=== PATIENT | male | born 1965 | race Caucasian/White ===

== ENCOUNTER 2016-09-14 20:05 | Emergency (ER) | payer BC, OTHER ==
[2016-09-14] MEDS ORDERED: Aspirin Low Dose CHEW TAB* 81 MG PO ONE (21:20)
[2016-09-14 21:44] LABS: Hematocrit 51 % (42-52); Hemoglobin 17.2 g/dl (14.0-18.0); Mean Corpuscular HGB Conc 34 g/dl (31-36); Mean Corpuscular Hemoglobin 30 pg (27-31); Mean Corpuscular Volume 88 fL (80-94); Mean Platelet Volume 8 um3 (7.4-10.4); Red Blood Count 5.79 10^6/ul (4.0-5.4); Red Cell Distribution Width 14 % (10.5-15); White Blood Count 7.7 10^3/ul (3.5-10.8)
[2016-09-14 21:59] LABS: Albumin 4.2 g/dL (3.2-5.2); BUN/Creatinine Ratio 16.5 (8-20); Calcium 9.2 mg/dL (8.6-10.3); EGFR African American 105.8 (>60); EGFR Non-African American 82.3 (>60); Globulin 2.6 g/dL (2-4); Potassium 3.7 mmol/L (3.5-5.0); Total Bilirubin 0.8 mg/dL (0.2-1.0); Total Protein 6.8 g/dL (6.4-8.9)
--- NOTE | 2016-09-14 22:14 | RAD ---
INDICATION: Chest pain. COMPARISON: There are no prior studies available for comparison. TECHNIQUE: A portable view of the chest was obtained. FINDINGS: Cardiac and mediastinal contours appear to be within normal limits. The lungs are clear. No pleural effusion is seen. IMPRESSION: NO EVIDENCE FOR ACUTE DISEASE.
--- NOTE | 2016-09-14 22:52 | ED ---
I, Oh,Aicha, scribed for Carmita Ramon MD on 09/14/16 at 2121 . HPI Chest Pain - HPI Summary HPI Summary: This 51 y/o male presents to ED for acute 2/10 chest tightness since 1900 PM this evening. Pt reports mild SOB, but denies diaphoresis. This chest pain is similar to what he usually have during his previous anxiety attacks, but pt decided to visit ED when he couldn't control the symptoms with alprazolam. PMHx does include known anxiety. He denies any Hx of DVT. No recent travel. FHx is negative for cardiac dz. 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 Plan of care involving cardiac workup and repeat Trop is discussed with pt. He is agreeable at this time. - History of Current Complaint Chief Complaint: EDChestPainROMI Time Seen by Provider: 09/14/16 20:47 Hx Obtained From: Patient Onset/Duration: Started Hours Ago, Atraumatic, Still Present Timing: Constant Pain Intensity: 2 Pain Scale Used: 0-10 Numeric Chest Pain Location: Diffuse Chest Pain Radiates: No Character: Tightness Aggravating Factor(s): Nothing Alleviating Factor(s): Nothing Associated Signs and Symptoms: Positive: Chest Pain, Shortness of Breath - mild. Negative: Fever, Diaphoresis - Allergy/Home Medications Allergies/Adverse Reactions: Allergies Allergy/AdvReac Type Severity Reaction Status Date / Time No Known Allergies Allergy Verified 09/14/16 20:37 PMH/Surg Hx/FS Hx/Imm Hx Infectious Disease History: Denies: Traveled Outside the [place] in Last 30 Days - Family History Known Family History: Negative: Cardiac Disease - Social History Occupation: Employed Full-time - production specialist at [employer] Alcohol Use: None Hx Substance Use: No Substance Use Type: Reports: None Hx Tobacco Use: No Smoking Status (MU): Never Smoked Tobacco Review of Systems Negative: Fever, Skin Diaphoresis Positive: Chest Pain - tightness Positive: Shortness Of Breath - mild Positive: Anxious All Other Systems Reviewed And Are Negative: Yes Physical Exam Triage Information Reviewed: Yes Vital Signs On Initial Exam: Initial Vitals Temp Pulse Resp BP Pulse Ox 98.1 F 95 16 112/80 99 09/14/16 20:11 09/14/16 20:11 09/14/16 20:11 09/14/16 20:11 09/14/16 20:11 Vital Signs Reviewed: Yes Appearance: Positive: Well-Appearing, No Pain Distress Skin: Positive: Warm, Skin Color Reflects Adequate Perfusion, Dry Head/Face: Positive: Normal Head/Face Inspection Eyes: Positive: EOMI, LEDY Neck: Positive: Supple, Nontender Respiratory/Lung Sounds: Positive: Clear to Auscultation, Breath Sounds Present Cardiovascular: Positive: RRR, Pulses are Symmetrical in both Upper and Lower Extremities. Negative: Murmur, Rub, Other - gallops Abdomen Description: Positive: Nontender, Soft Musculoskeletal: Positive: Strength/ROM Intact Neurological: Positive: Sensory/Motor Intact, Alert, Oriented to Person Place, Time, CN Intact II-III Psychiatric: Positive: Affect/Mood Appropriate AVPU Assessment: Alert Diagnostics - Vital Signs Vital Signs Temp Pulse Resp BP Pulse Ox 09/14/16 20:11 98.1 F 95 16 112/80 99 - Laboratory Lab Results: Lab Results 09/14/16 09/14/16 Range/Units 21:35 21:35 WBC 7.7 (3.5-10.8) 10^3/ul RBC 5.79 H (4.0-5.4) 10^6/ul Hgb 17.2 (14.0-18.0) g/dl Hct 51 (42-52) % MCV 88 (80-94) fL MCH 30 (27-31) pg MCHC 34 (31-36) g/dl RDW 14 (10.5-15) % Plt Count 200 (150-450) 10^3/ul MPV 8 (7.4-10.4) um3 Neut % (Auto) 49.7 (38-83) % Lymph % (Auto) 37.7 (25-47) % [place] % (Auto) 6.7 (1-9) % Eos % (Auto) 4.9 (0-6) % Baso % (Auto) 1.0 (0-2) % Absolute Neuts (auto) 3.8 (1.5-7.7) 10^3/ul Absolute Lymphs (auto) 2.9 (1.0-4.8) 10^3/ul Absolute Monos (auto) 0.5 (0-0.8) 10^3/ul Absolute Eos (auto) 0.4 (0-0.6) 10^3/ul Absolute Basos (auto) 0.1 (0-0.2) 10^3/ul Absolute Nucleated RBC 0.01 10^3/ul Nucleated RBC % 0.1 Sodium 136 (133-145) mmol/L Potassium 3.7 (3.5-5.0) mmol/L Chloride 103 (101-111) mmol/L Carbon Dioxide 27 (22-32) mmol/L Anion Gap 6 (2-11) mmol/L BUN 16 (6-24) mg/dL Creatinine 0.97 (0.67-1.17) mg/dL Est GFR ( Amer) 105.8 (>60) Est GFR (Non-Af Amer) 82.3 (>60) BUN/Creatinine Ratio 16.5 (8-20) Glucose 91 (70-100) mg/dL Calcium 9.2 (8.6-10.3) mg/dL Total Bilirubin 0.80 (0.2-1.0) mg/dL AST 22 (13-39) U/L ALT 24 (7-52) U/L Alkaline Phosphatase 39 (34-104) U/L Troponin I 0.00 (<0.04) ng/mL Total Protein 6.8 (6.4-8.9) g/dL Albumin 4.2 (3.2-5.2) g/dL Globulin 2.6 (2-4) g/dL Albumin/Globulin Ratio 1.6 (1-3) Result Diagrams: 09/14/16 21:35 09/14/16 21:35 Lab Statement: Any lab studies that have been ordered have been reviewed, and results considered in the medical decision making process. - Radiology CXR Xray Interpretation: No Acute Changes Radiology Interpretation Completed By: Radiologist - EKG 2017 Cardiac Rate: NL EKG Rhythm: Sinus Rhythm Chest Pain Course/Dx - Course Course Of Treatment: pt with no risk factors but with cp starting at 7pm has a hx of cp that is thought to be anxiety provoked that always goes away with benzos but today that didn't happen, he is awaiting a 2nd trop at 2pm and if it is negative will go home. Pt signed out to Dr. Contreras - Diagnoses Provider Diagnoses: Chest pain Discharge - Discharge Plan Condition: Stable Disposition: HOME Patient Education Materials: Chest Pain (ED) Forms: *Work Release The documentation as recorded by the scribe, Aicha Garg accurately reflects the service I personally performed and the decisions made by me, Carmita Ramon MD.
[2016-09-15 03:04] VITALS: BP 119/88
== END 2016-09-15 03:02 | disposition home or self-care (01) ==
LOC: ED 20:05
DX: R07.9 Chest pain, unspecified (principal); R06.02 Shortness of breath
CPT/HCPCS: 36415; 71010; 80053; 84484; 85025; 93005; 99282; A9270-GY

== ENCOUNTER 2019-05-10 11:09 | Day surgery (SDC) | payer BC ==
[~2019-05-10 11:09] MED LIST: Buffered Lidocaine 1% SYRIN* 1 ML/SYRINGE INTRADERM ONE; Lactated Ringers 1000 ML Bag* 1,000 ML IV SCH
[2019-05-10] MEDS ORDERED: Propofol* 10 MG/ML 20 ML BTL ONE ×2 (13:45→14:53)
[2019-05-10] MEDS ORDERED: Lidocaine 2% PF * 5 ML VIAL ONE (13:46)
[2019-05-10] MEDS ORDERED: oxyCODONE TAB* 5 MG TAB PO PRN (13:50)
[2019-05-10] MEDS ORDERED: DiMENhydriNATE IV* 50 MG/ML VIAL IV PUSH PRN (13:50)
[2019-05-10] MEDS ORDERED: Acetaminophen TAB* 325 MG PO PRN (13:50)
[2019-05-10] MEDS ORDERED: fentaNYL* 50 MCG/ML 2 ML VIAL (100 MCG VIAL) IV PRN (13:50)
[2019-05-10] MEDS ORDERED: Naloxone* 0.4 MG/ML 1 ML VIAL IV PRN (13:50)
[2019-05-10] MEDS ORDERED: Midazolam* 1 MG/ML 2 ML VIAL (2 MG) ONE (14:25)
[2019-05-10] MEDS ORDERED: fentaNYL* 50 MCG/ML 2 ML VIAL (100 MCG VIAL) ONE (14:25)
[2019-05-10] MEDS ORDERED: Oxymetazoline 0.05% NASAL SPR* 15 ML BTL ONE (14:33)
[2019-05-10] MEDS ORDERED: Lidocaine 2% w/ EPI 1:200,000* 20 ML SDV VIAL ONE (14:33)
[2019-05-10] MEDS ORDERED: Succinylcholine* 20 MG/ML 10 ML VIAL ONE (14:53)
[2019-05-10] MEDS ORDERED: Ondansetron INJ* 2 MG/ML VIAL ONE (14:55)
[2019-05-10] MEDS ORDERED: Dexamethasone IV* 4 MG/ML 1 ML (4 MG) ONE (14:55)
[2019-05-10] MEDS ORDERED: Metoclopramide IV* 5 MG/ML 2 ML VIAL ONE (14:55)
[2019-05-10] MEDS ORDERED: Labetalol IV* 5 MG/ML 20 ML VIAL ONE (14:55)
[2019-05-10] MEDS ORDERED: oxyCODONE TAB* 5 MG TAB ONE (15:38)
[2019-05-10] MEDS ORDERED: Acetaminophen TAB* 325 MG ONE (15:39)
[2019-05-10 16:35] VITALS: BP 122/85
--- NOTE | 2019-05-10 23:38 | OP ---
DATE OF OPERATION: 05/10/19 - SDS DATE OF : 69 SURGEON: Austyn Rojo MD. PRE-OP DIAGNOSES: Nasal dyspnea, deviated nasal septum, septal perforation, hypertrophied turbinate. POST-OP DIAGNOSES: Nasal dyspnea, deviated nasal septum, septal perforation, hypertrophied turbinate. OPERATIVE PROCEDURE: Revision septoplasty, repair of septal perforation, and submucosal resection of inferior turbinate. INDICATION: This is a 53-year-old gentleman with longstanding history of nasal dyspnea, having difficulty 24/7 without improvement with nasal spray. Examination shows a persistently deviated septum, and a small septal perforation with markedly hypertrophied turbinates. He elected for surgical management. DESCRIPTION OF PROCEDURE: The patient was brought to the operating room. The patient was intubated with LMA. Nose was decongested with Afrin placed pledgets. 2% lidocaine with epinephrine was infiltrated into the mucosa of the septum. Right hemitransfixion incision created, mucoperichondrial flap was elevated. Previously noted perforation, a small piece of bone was harvested from the vomer ethmoidal complex, inset into the defect and the mucosa was closed around it in 2 layers. Once this was done, the cartilage was disarticulated and put down in the midline and secured with splints. Next, we turned our attention to the inferior turbinates. A small incision was made in the inferior turbinate mucosa. Submucosal elevation was carried out and subsequently small portions of the inferior turbinate mucosa and bone were removed. Electrocautery was used for hemostasis. Once this was done, a small nasal dressing was applied. The patient was then awakened, sent to the recovery room in stable condition. Instrument and sponge counts were correct. [id number] #: [id number] [facility]
== END 2019-05-12 21:29 | disposition home or self-care (01) ==
LOC: OR 11:09
PROVIDERS: ATTEND Otolaryngology
DX: J34.2 Deviated nasal septum (principal); J34.89 Other specified disorders of nose and nasal sinuses; J34.3 Hypertrophy of nasal turbinates; F41.8 Other specified anxiety disorders
CPT/HCPCS: A9270-GY; J0330; J1100; J2250; J2405; J2704; J2765; J3010